=== PATIENT | male | born 1985 ===

== ENCOUNTER 2017-03-13 13:55 | Emergency (ER) | payer OTHER ==
--- NOTE | 2017-03-13 15:18 | UC ---
Lower Extremity/Ankle HPI - HPI Summary HPI Summary: right foot pain, 5th metatarsal pain and swelling-patient reports that he plays soccer and that makes the pain worse - History of Current Complaint Chief Complaint: UCLowerExtremity Stated Complaint: SWOLLEN FOOT Time Seen by Provider: 03/13/17 15:13 Hx Obtained From: Patient Onset/Duration: Gradual Onset, Lasting Days, Still Present Severity Initially: Mild Severity Currently: Mild Aggravating Factor(s): Standing, Ambulation Alleviating Factor(s): Rest, Elevation Able to Bear Weight: Yes - Allergies/Home Medications Allergies/Adverse Reactions: Allergies Allergy/AdvReac Type Severity Reaction Status Date / Time Bupropion [From Wellbutrin] Allergy Anaphylatic Verified 03/13/17 13:59 Shock Home Medications: Home Medications DULoxetine DR CAP* [Cymbalta CAP*] 60 mg PO DAILY 03/13/17 [History Confirmed ] PMH/Surg Hx/FS Hx/Imm Hx Previously Healthy: No Psychological History: Depression - Surgical History Surgical History: Yes Surgery Procedure, Year, and Place: acl r knee - Family History Family History: no reported cardiovascular pain in family lineage - Social History Occupation: Employed Full-time Lives: With Family Alcohol Use: None Substance Use Type: None Smoking Status (MU): Never Smoked Tobacco Review of Systems Constitutional: Negative Skin: Negative Eyes: Negative ENT: Negative Respiratory: Negative Cardiovascular: Negative Gastrointestinal: Negative Genitourinary: Negative Motor: Negative Neurovascular: Negative Musculoskeletal: Arthralgia - right 5th MT Neurological: Negative Psychological: Negative All Other Systems Reviewed And Are Negative: Yes Physical Exam Triage Information Reviewed: Yes Appearance: Well-Appearing, No Pain Distress, Well-Nourished Vital Signs: Initial Vital Signs Temp 98 F 03/13/17 14:01 Pulse 76 03/13/17 14:01 Resp 18 03/13/17 14:01 BP 133/77 03/13/17 14:01 Pulse Ox 100 03/13/17 14:01 Vital Signs Reviewed: Yes Eye Exam: Normal Eyes: Positive: Conjunctiva Clear ENT Exam: Normal ENT: Positive: Normal ENT inspection, Hearing grossly normal. Negative: Nasal congestion, Nasal drainage, Trismus, Muffled/hoarse voice Dental Exam: Normal Neck exam: Normal Neck: Positive: Supple, Nontender Respiratory Exam: Normal Respiratory: Positive: Chest non-tender, No respiratory distress, No accessory muscle use Cardiovascular Exam: Normal Cardiovascular: Positive: RRR, Pulses Normal, Brisk Capillary Refill Musculoskeletal Exam: Normal Musculoskeletal: Positive: Strength Intact, ROM Intact, No Edema Neurological Exam: Normal Neurological: Positive: Alert, Muscle Tone Normal Psychological Exam: Normal Skin Exam: Normal Diagnostics - Radiology No standard instances Xray Interpretation: No Acute Changes Radiology Interpretation Completed By: Radiologist Lower Extremity Course/Dx - Course Course Of Treatment: ibuprofen study shoes follow with podiatry - Differential Dx/Diagnosis Differential Diagnosis/HQI/PQRI: Contusion, Fracture (Closed), Sprain, Strain Provider Diagnoses: Contusion right foot Discharge - Discharge Plan Condition: Stable Disposition: HOME Patient Education Materials: Foot Contusion (ED) Referrals: Non Staff,Doctor [Primary Care Provider] - Additional Instructions: Follow with Podiatry in your home town if needed
--- NOTE | 2017-03-13 15:37 | RAD ---
Indication: Fifth metatarsal pain. 3 views of the right foot demonstrates no fracture. No other bone or joint abnormality is identified. IMPRESSION: No fracture of the right foot is noted.
== END 2017-03-13 16:11 | disposition home or self-care (01) ==
LOC: UCEAST 13:55
DX: S90.31XA Contusion of right foot, initial encounter (principal); Y93.66 Activity, soccer; Y93.9 Activity, unspecified; Y92.9 Unspecified place or not applicable; Y99.9 Unspecified external cause status; F32.9 Major depressive disorder, single episode, unspecified
CPT/HCPCS: 99201; G0463